=== PATIENT | female | born 1950 | race Caucasian/White ===

== ENCOUNTER 2021-02-26 19:23 | Emergency (ER) | payer OTHER ==
[~2021-02-26] VITALS: Ht 162.6 cm; Wt 84.4 kg
[2021-02-26] MEDS ORDERED: LIPITOR 10 MG10 M1 PO (19:34)
[2021-02-26] MEDS ORDERED: LEVO-T75 MCG PO (19:34)
[2021-02-26] MEDS ORDERED: PROPRANOLOL 20M20 MG PO (19:35)
[2021-02-26] MEDS ORDERED: LISINOPRIL10 MG PO (19:35)
[2021-02-26] MEDS ORDERED: WELLBUTRIN SR150 MG PO (19:36)
[2021-02-26] MEDS ORDERED: PLAVIX 75 MG TA75 MG PO (19:36)
[2021-02-26] MEDS ORDERED: NORCO5 PO (20:37)
[2021-02-26] MEDS ORDERED: CEPHALEXIN500 MG PO (20:39)
[2021-02-26 20:44] VITALS: BP 180/76
== END 2021-02-26 20:45 | disposition home or self-care (01) ==
LOC: M.ERS 19:23
DX: S61.011A Laceration without foreign body of right thumb without damage to nail, initial encounter (principal); I10 Essential (primary) hypertension; Z79.899 Other long term (current) drug therapy; Z98.890 Other specified postprocedural states; Z79.01 Long term (current) use of anticoagulants; W27.4XXA Contact with kitchen utensil, initial encounter; Y93.89 Activity, other specified; Y92.098 Other place in other non-institutional residence as the place of occurrence of the external cause; Y99.9 Unspecified external cause status